=== PATIENT | male | born 1990 | race Caucasian/White ===

== ENCOUNTER 2020-01-25 15:54 | Emergency (ER) | payer OTHER ==
--- NOTE | 2020-01-25 16:50 | RADIOLOGY REPORT (SQ) ---
EXAM DESCRIPTION: FOOT RIGHT COMPLETE IMAGES COMPLETED DATE/TIME: 01/25/2020 4:37 pm REASON FOR STUDY: injury / amputation COMPARISON: None. NUMBER OF VIEWS: Three views. TECHNIQUE: AP, lateral and oblique radiographic images acquired of the right foot. LIMITATIONS: None. FINDINGS: MINERALIZATION: Normal. BONES: Acute transverse comminuted fracture base left great toe extending into the interphalangeal j oint. JOINTS: No effusions. SOFT TISSUES: Laceration across the great toe at the level of the toenail. OTHER: No other significant finding. IMPRESSION: Acute transverse comminuted fracture base left great toe extending into the interphalang eal joint TECHNICAL DOCUMENTATION: JOB ID: [id number] 2010 [employer]- All Rights Reserved Reading location - IP/workstation name: [id number]
--- NOTE | 2020-01-25 16:53 | RADIOLOGY REPORT (SQ) ---
EXAM DESCRIPTION: ANKLE LEFT COMPLETE IMAGES COMPLETED DATE/TIME: 01/25/2020 4:37 pm REASON FOR STUDY: injury COMPARISON: None. NUMBER OF VIEWS: Three views. TECHNIQUE: AP, lateral, and oblique radiographic images acquired of the left ankle. LIMITATIONS: None. FINDINGS: MINERALIZATION: Normal. BONES: Question tiny acute avulsion off the lateral edge of the talus at the attachment of the fibulo talar ligament. This is marked with arrow. JOINTS: No effusions. No disruption of the ankle mortise SOFT TISSUES: No soft tissue swelling. No foreign body. OTHER: No other significant finding. IMPRESSION: Question acute tiny avulsion fracture off the lateral edge of the talus at the fibulotal ar ligament attachment TECHNICAL DOCUMENTATION: JOB ID: [id number] 2010 [employer]- All Rights Reserved Reading location - IP/workstation name: [id number]
[2020-01-25] MEDS ORDERED: LIDOCAINE 1% INJ-PF (10 MG/ML) 30 ML SDV INJ ONE (16:54)
[2020-01-25 16:55] VITALS: BP 137/80
[2020-01-25] MEDS ORDERED: BUPIVACAINE HCL 0.5 % INJ/PF 30 ML SDV INJ ONE (16:55)
[2020-01-25] MEDS ORDERED: AMOXICILLIN TR/POT CLAVULANATE 875-125 MG TAB PO ONE (19:01)
[2020-01-25] MEDS ORDERED: DIPH/PERTUSS(ACELL)/TETANUS VAC/PF 0.5 ML SYR (>=10YO) IM ONE (19:09)
--- NOTE | 2020-01-25 19:09 | ER Document Report ---
ED Extremity Problem, Lower - General Chief Complaint: Toe Injury Stated Complaint: RIGHT TOE INJURY Time Seen by Provider: 01/25/20 16:30 Notes: Patient is a 29-year-old male who presents the emergency department with a chief complaint of right great toe pain. Patient states that he was on a boat and he tripped over a metal [place] and sustained a laceration to his right great toe. Denies any past medical history. Does not take any medications on a daily basis. - Related Data Allergies/Adverse Reactions: No Known Allergies Allergy (Unverified 01/25/20 16:02) Past Medical History - General Information source: Patient - Social History Smoking Status: Never Smoker Chew tobacco use (# tins/day): No Frequency of alcohol use: Occasional Drug Abuse: None Family History: Reviewed & Not Pertinent Review of Systems - Review of Systems Notes: REVIEW OF SYSTEMS: CONSTITUTIONAL : Denies recent illness. Denies recent unintentional weight loss. Denies fever, chills, or sweats. EENT: Denies eye, ear, throat, or mouth pain, discharge, or symptoms. Denies nasal or sinus congestion. CARDIOVASCULAR: Denies chest pain. RESPIRATORY: Denies shortness of breath, cough, congestion, difficulty breathing, or wheezing. GASTROINTESTINAL: Denies nausea, vomiting, and diarrhea. Denies abdominal pain. Denies constipation. GENITOURINARY: Denies difficulty urinating, burning, blood in urine, urgency or frequency. MUSCULOSKELETAL: Denies neck and back pain. See HPI. SKIN: Denies rash, itchiness, or lesions HEMATOLOGIC : Denies easy bruising or bleeding. LYMPHATIC: Denies swollen, painful, enlarged glands. NEUROLOGICAL: Denies no numbness or tingling denies weakness. Denies headache. Denies altered mental status. Denies alteration in speech. PSYCHIATRIC: Denies stress, anxiety, alteration in sleep patterns, or depression. All other systems reviewed and negative. Physical Exam - Vital signs Vitals: Temp Pulse Resp BP Pulse Ox 98.1 F 70 16 137/80 H 99 01/25/20 16:03 01/25/20 16:03 01/25/20 16:03 01/25/20 16:03 01/25/20 16:03 - Notes Notes: PHYSICAL EXAMINATION: GENERAL: Appears well, healthy, well-nourished, no acute distress. HEAD: Normocephalic, atraumatic. EYES: PERRL, conjunctiva normal, all extraocular movements intact, sclera nonicteric ENT: Moist mucous membranes. NECK: Supple, no noticeable swelling, redness, rash. Normal range of motion. EXTREMITIES: Normal strength and range of motion, no pitting or edema. No cyanosis. NEUROLOGICAL: Moves all extremities upon command. Able to flex and extend all digits and toes. Tenderness noted to right lateral ankle. PSYCH: Normal mood, normal affect. SKIN: Warm, dry. Laceration noted to right great toe. Course - Re-evaluation Re-evalutation: 01/25/20 19:13 Differential diagnosis includes but is not limited to: Laceration, foreign body, arterial injury, nerve injury, fracture or tendon injury. Patient was able to flex and extend his digits against resistance distal to the laceration with no apparent tendon injury, CMS intact distal to the injury with no evidence of nerve damage, bleeding was well-controlled in the emergency department. X-ray was obtained and there is a fracture. Wound was repaired. See procedure note. Patient will be started on Augmentin. Patient will follow-up with orthopedics when he returns to [place]. He is in agreement with this plan. Follow-up precautions were given. Verbal discharge instructions were given to the patient. They verbalized understanding. They are stable for discharge. - Vital Signs Vital signs: Temp Pulse Resp BP Pulse Ox 98.1 F 70 16 137/80 H 99 01/25/20 16:03 01/25/20 16:03 01/25/20 16:03 01/25/20 16:03 01/25/20 16:03 Procedures - Immobilization Right Ankle Pre-Proc Neuro Vasc Exam: Normal Immobilizer type: Short Leg Posterior Performed by: RN Post-Proc Neuro Vasc Exam: Normal, Unchanged from pre-exam Alignment checked and good: Yes - Laceration/Wound Repair Right Distal Great toe Wound length (cm): 4 Wound's Depth, Shape: Superficial, Linear, Nail-avulsed Laceration pre-procedure: Sterile PPE donned, Sterile drapes applied, Shur-Clens applied Anesthetic type: 0.5% Bupivacaine - And 1% lidocaine Volume Anesthetic (mLs): 10 Wound explored: Clean, No foreign body removed Wound Repaired With: Sutures Suture Size/Type: 5:0 Number of Sutures: 14 Post-procedure wound care: Sterile dressing applied Post-procedure NV exam normal: Yes Discharge - Discharge Clinical Impression: Open toe fracture Qualifiers: Encounter type: initial encounter Toe: great toe Phalanx: distal Fracture alignment: displaced Laterality: right Qualified Code(s): S92.421B - Displaced fracture of distal phalanx of right great toe, initial encounter for open fracture Closed right ankle fracture Qualifiers: Encounter type: initial encounter Qualified Code(s): S82.891A - Other fracture of right lower leg, initial encounter for closed fracture Condition: Stable Disposition: HOME, SELF-CARE Additional Instructions: You were seen today in the emergency department for a laceration to your right great toe. You also have a fracture. When you return to [place], please follow-up with your primary care provider and get a referral out to orthopedics this week. Make sure you stay use her crutches. You also have a fracture to the right side of your ankle. This is a small chip fracture. You are being placed in a splint. Wear the splint until you follow-up with orthopedics. Take ibuprofen 600 mg every 6 hours as needed for your pain. Take Tylenol 650 mg as needed for your pain. Only take the [place] if you have excruciating pain. Take the antibiotics as prescribed. Prescriptions: Amoxicillin/Potassium Clav [Augmentin 875-125 Tablet] 1 tab PO BID #20 tab Amoxicillin/Potassium Clav [Augmentin 875-125 Tablet] 1 tab PO BID #14 tab Oxycodone HCl/Acetaminophen [Percocet 5-325 mg Tablet] 1 - 2 tab PO Q4H PRN #25 tablet PRN Reason:
== END 2020-01-25 20:00 | disposition home or self-care (01) ==
LOC: ER 15:54
DX: S92.421B Displaced fracture of distal phalanx of right great toe, initial encounter for open fracture (principal); S82.891A Other fracture of right lower leg, initial encounter for closed fracture; W18.09XA Striking against other object with subsequent fall, initial encounter; Z23 Encounter for immunization
CPT/HCPCS: 99284; 90471; 73610; 73630; 90715; 12002; 29515; J3490 ×3